=== PATIENT | male | born 1995 | race African-American/Black ===

== ENCOUNTER 2019-02-25 16:09 | Emergency (ER) | payer BC, OTHER ==
--- NOTE | 2019-02-25 17:06 | ER Document Report ---
ED Medical Screen (RME) - General Chief Complaint: Palpitations Stated Complaint: HEART RACING, LIGHT HEADED, FACE NUMB Time Seen by Provider: 02/25/19 16:46 Primary Care Provider: PANCHO MEJIA DO [Primary Care Provider] - Follow up as needed Notes: Patient is a 23-year-old male presents to the emergency department for right facial numbness. Patient states is an extensive history of heart palpitations, numbness in his left arm. States he saw chair mender 2 days ago for same. States he is scheduled for an echocardiogram and Holter monitor. States he has had intermittent right facial numbness for the last couple of days. States it has been constant since last night. Patient's denying any numbness or tingling in any extremity currently. He is currently denying any chest pain or palpitations. Mother is very concerned because patient's right facial numbness is a new symptom. Mother continues to interrupt me when I am attempting to describe facial nerve palsies to her. States "his doctor would just order a CT." We discussed the radiation risks of CT imaging with the mother's patient. Mother wishes for CT imaging at this time. GENERAL: Alert, interacts well. No acute distress. HEAD: Normocephalic, atraumatic. Equal folds noted forehead. EYES: Pupils equal, round, and reactive to light. Extraocular movements intact. No proptosis noted. EXTREMITIES: Moves all 4 extremities spontaneously. No edema, normal radial and dorsalis pedis pulses bilaterally. No cyanosis. 5 out of 5 strength all 4 extremities. [place]ont stroke scale 0 I have greeted and performed a rapid initial assessment of this patient. A comprehensive ED assessment and evaluation of the patient, analysis of test results and completion of the medical decision making process will be conducted by additional ED providers. This medical record was dictated with voice recognizing software. There may be grammatical, syntax errors that are unintended. TRAVEL OUTSIDE OF THE [place] IN LAST 30 DAYS: No - Related Data Allergies/Adverse Reactions: amoxicillin Allergy (Verified 02/25/19 16:10) Past Medical History - Social History Chew tobacco use (# tins/day): No Frequency of alcohol use: None Drug Abuse: None Renal/ Medical History: Denies: Hx Peritoneal Dialysis Physical Exam - Vital signs Vitals: Temp Pulse Resp BP Pulse Ox 98.2 F 86 16 151/78 H 100 02/25/19 16:23 02/25/19 16:23 02/25/19 16:23 02/25/19 16:23 02/25/19 16:23 Course - Vital Signs Vital signs: Temp Pulse Resp BP Pulse Ox 98.2 F 86 16 151/78 H 100 02/25/19 16:23 02/25/19 16:23 02/25/19 16:23 02/25/19 16:23 02/25/19 16:23 Doctor's Discharge - Discharge Referrals: PANCHO MEJIA, [Primary Care Provider] - Follow up as needed
--- NOTE | 2019-02-25 17:25 | EKG REPORT ---
SEVERITY:- ABNORMAL ECG - SINUS TACHYCARDIA BORDERLINE RIGHT AXIS DEVIATION = LPFB ABNORMAL T, CONSIDER ISCHEMIA, INFERIOR LEADS LVH : Confirmed by: Adiel Cleary MD 25-Feb-2019 17:24:57
--- NOTE | 2019-02-25 18:03 | RADIOLOGY REPORT (SQ) ---
EXAM DESCRIPTION: CT HEAD WITHOUT COMPLETED DATE/TIME: 02/25/2019 5:55 pm REASON FOR STUDY: numbness right face COMPARISON: None. TECHNIQUE: Axial images acquired through the brain without intravenous contrast. Images reviewed wi th bone, brain and subdural windows. Additional sagittal and coronal reconstructions were generated. Images stored on PACS. All CT scanners at this facility use dose modulation, iterative reconstruction, and/or weight based d osing when appropriate to reduce radiation dose to as low as reasonably achievable (ALARA). [facility]: Dose Right [facility]: CareDose [facility]: Dose Right [facility]: Teradose 4D [facility]: [employer] Technologies RADIATION DOSE: CT Rad equipment meets quality standard of care and radiation dose reduction techniq ues were employed. CTDIvol: 53.2 mGy. DLP: 937 mGy-cm. mGy. LIMITATIONS: None. FINDINGS: VENTRICLES: Normal size and contour. CEREBRUM: No masses. No hemorrhage. No midline shift. No evidence for acute infarction. Normal gra y/white matter differentiation. No areas of low density in the white matter. CEREBELLUM: No masses. No hemorrhage. No alteration of density. No evidence for acute infarction. EXTRAAXIAL SPACES: No fluid collections. No masses. ORBITS AND GLOBE: No intra- or extraconal masses. Normal contour of globe without masses. CALVARIUM: No fracture. PARANASAL SINUSES: No fluid or mucosal thickening. SOFT TISSUES: No mass or hematoma. OTHER: No other significant finding. IMPRESSION: No acute intracranial pathology. EVIDENCE OF ACUTE STROKE: NO. COMMENT: Quality ID # [id number]: Final reports with documentation of one or more dose reduction techniques (e.g., Automated exposure control, adjustment of the mA and/or kV according to patient size, use of iterative reconstruction technique) TECHNICAL DOCUMENTATION: JOB ID: [id number] [employer]- All Rights Reserved Reading location - IP/workstation name: [email or web address]
--- NOTE | 2019-02-25 19:51 | ER Document Report ---
ED General - General Chief Complaint: Palpitations Stated Complaint: HEART RACING, LIGHT HEADED, FACE NUMB Time Seen by Provider: 02/25/19 16:46 Primary Care Provider: PANCHO MEJIA DO [Primary Care Provider] - Follow up as needed Notes: Patient is a 23-year-old male without diagnosed chronic medical problems who presents with intermittent and migratory paresthesias. Patient states that he has abnormal sensations in between his left and right face and occasionally in his left upper extremity. This is been ongoing for the past several days but he states that it has been constant since 8 PM last evening. The patient initially tells me that it is his left face although when I asked him why in triage it stated right face he states "oh yeah it is my right". Nothing seems to improve or worsen his symptoms which she does regard is being constant, mild to moderate in nature and not improved or worsened by anything. The patient also reports that since October of this year he has had a multitude of various symptoms including palpitations, intermittent chest discomfort, upper abdominal discomfort and intermittent nausea. He has had extensive evaluations including endoscopy, evaluation by cardiology and is scheduled to have an echocardiogram, Holter monitor and stress test in March. He currently denies any symptoms. Presented today as the facial paresthesias were something new and different for him. States that he does have some anxiety and believes this could be contributing to his symptoms. Denies any focal weakness, loss of sensation, difficulty walking or confusion. Denies any falls or head traumas. Denies drug or alcohol use. TRAVEL OUTSIDE OF THE [place] IN LAST 30 DAYS: No - Related Data Allergies/Adverse Reactions: amoxicillin Allergy (Verified 02/25/19 16:10) Past Medical History - General Information source: Patient - Social History Smoking Status: Never Smoker Chew tobacco use (# tins/day): No Frequency of alcohol use: None Drug Abuse: None Lives with: Parents Family History: Reviewed & Not Pertinent Patient has suicidal ideation: No Patient has homicidal ideation: No Renal/ Medical History: Denies: Hx Peritoneal Dialysis Review of Systems - Review of Systems Notes: Constitutional: Negative for fever. HENT: Negative for sore throat. Eyes: Negative for visual changes. Cardiovascular: Negative for chest pain. Respiratory: Negative for shortness of breath. Gastrointestinal: Negative for abdominal pain, vomiting or diarrhea. Genitourinary: Negative for dysuria. Musculoskeletal: Negative for back pain. Skin: Negative for rash. Neurological: Negative for headaches, positive for facial paresthesias 10 point ROS negative except as marked above and in HPI. Physical Exam - Vital signs Vitals: Temp Pulse Resp BP Pulse Ox 98.2 F 86 16 151/78 H 100 02/25/19 16:23 02/25/19 16:23 02/25/19 16:23 02/25/19 16:23 02/25/19 16:23 Interpretation: Hypertensive Notes: PHYSICAL EXAMINATION: GENERAL: Well-appearing, well-nourished and in no acute distress. HEAD: Atraumatic, normocephalic. EYES: Pupils equal round and reactive to light, extraocular movements intact, sclera anicteric, conjunctiva are normal. ENT: nares patent, oropharynx clear without exudates. Moist mucous membranes. NECK: Normal range of motion, supple without lymphadenopathy LUNGS: Breath sounds clear to auscultation bilaterally and equal. No wheezes rales or rhonchi. HEART: Regular rate and rhythm without murmurs ABDOMEN: Soft, nontender, normoactive bowel sounds. No guarding, no rebound. No masses appreciated. EXTREMITIES: Normal range of motion, no pitting or edema. No cyanosis. NEUROLOGICAL: Face symmetric. Tongue protrudes midline. Extraocular motions intact. Pupils are 2 mm and equally reactive. Normal speech, normal gait. 5 out of 5 strength in both the distal and proximal upper and lower extremities bilaterally. Sensation is grossly intact throughout. Finger to nose testing normal. Pronator drift normal. PSYCH: Normal mood, normal affect. SKIN: Warm, Dry, normal turgor, no rashes or lesions noted. Course - Re-evaluation Re-evalutation: 02/25/19 19:49 Patient presents complaining of intermittent and migratory paresthesias including bilateral face, left upper extremity, none currently present at the time of my evaluation. NIH stroke scale 0. Patient has no neurologic deficits on exam. No sensory deficits. CT head obtained in triage is normal. Clinical history and exam not consistent with TIA, stroke, very low probability of MS although this was discussed with patient and family. EKG unremarkable. Patient denies any chest pain, shortness of breath or active palpitations and is currently follow with cardiology regarding his intermittent palpitations scheduled for an echocardiogram, Holter monitor and stress test within the next 1 month. At this time, patient symptoms are not concerning for any alternative life-threatening pathology and I have advised the patient and family to continue following with general care as an outpatient. At this time will discharge with return precautions and follow-up recommendations. Verbal discharge instructions given a the bedside and opportunity for questions given. Medication warnings reviewed. Patient is in agreement with this plan and has verbalized understanding of return precautions and the need for primary care follow-up in the next 24-72 hours. - Vital Signs Vital signs: Temp Pulse Resp BP Pulse Ox 98.7 F 76 16 136/62 H 97 02/25/19 20:17 02/25/19 20:17 02/25/19 20:17 02/25/19 20:17 02/25/19 20:17 - Diagnostic Test Radiology reviewed: Image reviewed, Reports reviewed Radiology results interpreted by me: 02/25/19 19:50 CT head: No acute cranial bleed or mass - EKG Interpretation by Me Additional EKG results interpreted by me: 02/25/19 19:50 6 sinus tachycardia, rate 108, no ST elevations or depressions. QTC 429. Discharge - Discharge Clinical Impression: Palpitations, Facial paresthesia Condition: Good Disposition: HOME, SELF-CARE Additional Instructions: Please return to the emergency room immediately if you experience any concerning symptoms including high fevers, severe headache, chest pain, difficulty breathing, abdominal pain, slurred speech, numbness or weakness in your arms or legs, or any other symptom that concerns you. The CT of your head is normal. Your EKG is normal. Continue to follow with your primary doctor and metal alloy scientist for the pending tests. Referrals: PANCHO MEJIA, [Primary Care Provider] - Follow up as needed
[2019-02-25 20:21] VITALS: BP 136/62
== END 2019-02-25 20:18 | disposition home or self-care (01) ==
LOC: ER 16:09
DX: R00.2 Palpitations (principal); R42 Dizziness and giddiness; R20.0 Anesthesia of skin; Z88.0 Allergy status to penicillin
CPT/HCPCS: 70450; 93005; 93010; 99284

== ENCOUNTER 2019-03-26 14:59 | Emergency (ER) | payer OTHER, BC ==
[2019-03-26] MEDS ORDERED: CYCLOBENZAPRINE HCL 10 MG TABLET PO ONE (16:05)
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
[2019-03-26 18:06] VITALS: BP 135/72
== END 2019-03-26 18:10 | disposition home or self-care (01) ==
LOC: ER 14:59
DX: S16.1XXA Strain of muscle, fascia and tendon at neck level, initial encounter (principal); M54.2 Cervicalgia; V87.7XXA Person injured in collision between other specified motor vehicles (traffic), initial encounter
CPT/HCPCS: 72125; 99283